=== PATIENT | male | born 1940 | race Two or more races ===

== ENCOUNTER 2019-08-30 08:25 | Outpatient (CLI) | payer OTHER ==
[~2019-08-30 08:25] MED LIST: TESSALON200 MG PO
== END 2019-08-30 08:31 | disposition home or self-care (01) ==
LOC: SONOGRAMA 08:25 → MAMO-SONO 08:45
DX: R10.84 Generalized abdominal pain (principal)

== ENCOUNTER 2024-12-21 12:11 | Outpatient (CLI) | payer OTHER ==
[2024-12-21 13:24] LABS: CREATININE SERUM 0.91 mg/dL (0.70-1.30); GFR 79.76
== END 2024-12-21 12:17 | disposition home or self-care (01) ==
LOC: LAB 12:11
PROVIDERS: ATTEND Radiology Diagnostic Radiology
DX: I11.9 Hypertensive heart disease without heart failure (principal)

== ENCOUNTER 2024-12-22 07:27 | Outpatient (CLI) | payer OTHER | END 2024-12-22 07:35 | disposition home or self-care (01) | LOC: TOM 07:27 | PROVIDERS: ATTEND Otolaryngology Otology & Neurotology | DX: K11.20 Sialoadenitis, unspecified (principal); I11.9 Hypertensive heart disease without heart failure | CPT/HCPCS: 70491; 74177; Q9965 ==